=== PATIENT | male | born 2000 | race Caucasian/White ===

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

== ENCOUNTER 2023-11-02 18:32 | Emergency (ER) | payer BC, SELFPAY ==
--- NOTE | 2023-11-02 18:39 | ED.GENADULT ---
HPI - General Adult General Stated complaint: Med Refill Related Data Home Medications Medication Instructions Recorded Confirmed baclofen 5 mg tablet 5 mg PO BID 11/02/23 11/02/23 levetiracetam 750 mg tablet 1,500 mg PO BID 11/02/23 11/02/23 melatonin 5 mg tablet 5 mg PO HS 11/02/23 11/02/23 pregabalin 25 mg capsule 25 mg PO BID 11/02/23 11/02/23 sumatriptan succinate 25 mg tablet 25 mg PO PRN 11/02/23 11/02/23 Allergies Allergy/AdvReac Type Severity Reaction Status Date / Time bee venom protein (honey bee) Allergy Unknown Verified 12/12/21 16:34 [bees] PMFSH Past Medical History Medical History Bradycardia Family History Family History Other No acute medical problems Social History Social History Smoking status: Current every day smoker Tobacco type: e-cigarettes/vaping Substance use: current Gender identity (if verbalized by the patient): Male Discharge Plan Discharge Prescriptions: No Action sumatriptan succinate 25 mg tablet 25 mg PO PRN levetiracetam 750 mg tablet 1,500 mg PO BID pregabalin 25 mg capsule 25 mg PO BID melatonin 5 mg tablet 5 mg PO HS baclofen 5 mg tablet 5 mg PO BID Follow-up/Referrals: PHYSICIAN,[facility] [Primary Care Provider] -
[2023-11-02 18:42] VITALS: BP 123/57; PULSE 45; RESP 16; TEMP 36.9; O2SAT 100
[2023-11-02 18:51] VITALS: BP 123/57; PULSE 45; RESP 16; TEMP 36.9; O2SAT 100
== END 2023-11-02 18:45 | disposition left against medical advice (07) ==
LOC: EXPCOLL 18:35
PROVIDERS: Emergency Provider Nurse Practitioner
DX: Z53.21 Procedure and treatment not carried out due to patient leaving prior to being seen by health care provider (principal)
CPT/HCPCS: 99199

== ENCOUNTER 2023-12-08 14:08 | Emergency (ER) | payer BC, SELFPAY ==
[2023-12-08 14:21] VITALS: BP 144/75; PULSE 42; RESP 16; TEMP 36.7; O2SAT 99
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
== END 2023-12-08 14:44 | disposition home or self-care (01) ==
PROVIDERS: Emergency Provider Nurse Practitioner
DX: K02.9 Dental caries, unspecified (principal); F17.290 Nicotine dependence, other tobacco product, uncomplicated
CPT/HCPCS: 99213; G0463